=== PATIENT | male | born 2000 | race Caucasian/White ===

== ENCOUNTER 2022-08-12 16:34 | Emergency (ER) | payer OTHER, SELFPAY ==
[2022-08-12 16:38] VITALS: BP 132/81; PULSE 101; RESP 18; TEMP 37.3; O2SAT 97; BMI 23.6
[2022-08-12 16:54] LABS: Appearance Urine Clear; Color Urine Yellow; Glucose Urine UA Negative (Negative); Leukocyte Esterase Urine Negative (Negative); Nitrite Urine Negative (Negative); PH 7.5 (5.0-9.0); Urine Blood Negative (Negative); Urine Ketones Negative (Negative); Urine Protein Negative (Neg-Trace)
[2022-08-12 17:37] VITALS: TEMP 37.9
--- NOTE | 2022-08-12 17:38 | ED.MALEGU ---
HPI - Male Genitourinary General Chief complaint: Urogenital-Male Stated complaint: frequent cold chills Time Seen by Provider: 08/12/22 16:57 Source: patient Mode of arrival: ambulatory Limitations: no limitations History of Present Illness HPI Narrative: 21 yold male presents to the ED for unprotected sex exposure and dysuria. Patient states his sexual partner informed him that she had gonorrhea. patient states two days ago he was evaluated by Providers and was treated emperically for gonorhea and chlamydia and still waiting for the results of gonorrhea and chlamydia. Patient was given ceftraixone and is presently taking doxyclyine for the past 2 days. patient states now seeing non-painful lesion on shaft of penis. Patient also states sore throat. Related Data Allergies Allergy/AdvReac Type Severity Reaction Status Date / Time No Known Allergies Allergy Verified 08/12/22 16:38 Review of Systems Review of Systems: sore throat, dysuria, unprotectes sex Yes all other systems are reviewed and are negative PMFSH Social History Social History Advance Directives: No Advance Directives Information Provided: Yes Physical Exam Vital Signs: Vital Signs: Last Vital Signs Temp 99.2 F 08/12/22 19:16 Pulse 100 08/12/22 19:16 Resp 18 08/12/22 19:16 BP 123/71 08/12/22 19:16 Pulse Ox 95 08/12/22 19:16 O2 Del Method 08/12/22 19:16 BMI result Body Mass Index 23.6 Const: General: cooperative, healthy appearing, comfortable, no acute distress, well developed, alert, awake and Physically active Orientation/consciousness: oriented to time and patient oriented x3 HEENT: Head: Yes normal to inspection, Yes No palpable skull fracture present, Yes normocephalic, Yes atraumatic and No abrasion Throat: Yes posterior oropharynx normal, Yes tonsils normal and Yes uvula midline Eyes: General: appearance normal, both eyes and all related structures Neck: Neck: Yes normal visual inspection, Yes full ROM, Yes no lymphadenopathy, Yes no meningeal signs, Yes trachea midline, Yes supple, No anterior neck swelling and No tender Chest: Chest palpation & inspection: normal inspection of the chest and normal palpation of entire chest wall Resp: Effort & Inspection: normal respiratory effort and able to speak in complete sentences Auscultation: clear to auscultation bilaterally Cardio: Jugular venous distension: no JVD Heart sounds: S1 normal heart sound present and S2 normal heart sound present GI: Inspection: Yes normal to inspection and No abdominal wall ecchymosis Palpation (GI): Soft to palpation, not firm, nontender, no guarding and not rigid : Other: inguinals are normal General: Yes CVA tenderness and Yes no CVA tenderness Penis: uncircumcised Meatus: meatus normal Scrotum: scrotum normal Testes: Testes normal Male genitals images: 1. Non ulcerated nonpainful erythamatous lesion with black spot. Back/Spine/Pelvis: Back: no CVA tenderness and CVA tenderness Skin: General skin exam: no rashes or lesions noted and elasticity normal Neuro: General: oriented to time, patient oriented x3, gait normal, tone normal, no meningeal signs and CN's II-XI intact bilaterally Cranial nerves: Yes CN's II-XII intact bilaterally Extrem: General: Yes normal to inspection and Yes full ROM Psych: Appearance: grossly normal, well kempt and not disheveled Course Course Course Narrative: RPR, chlamydia gonorrhea of the throat ordered, SARs, strep, UA, CTNG urine ordered. HSV ordered. Reevaluation(s) Reevaluation #1: Penicillin G ordered. Patient already on doxycycline and treated with IM ceftriaxone 2 days ago. Patient well appearing to be discharged. Time: 19:53 Medications Administered Discontinued Medications Generic Name Dose Route Start Last Admin Trade Name Freq PRN Reason Stop Dose Admin Penicillin G Benzathine 2,400,000 unit 08/12/22 17:38 08/12/22 18:26 Penicillin G Benzathine 2,400,000 Unit/4 Ml Syringe IM 08/12/22 17:39 2,400,000 unit ONCE ONE Administration MDM - Male Genitourinary MDM Narrative Medical decision making narrative: Unprotected sex expose Lab Data Labs: Lab Results 08/12/22 08/12/22 08/12/22 Range/Units 16:49 18:22 18:57 Urine Color Yellow Urine Appearance Clear Urine pH 7.5 (5.0-9.0) Ur Specific [place] 1.020 (1.005-1.025) Urine Protein Negative (Neg-Trace) mg/dL Urine Glucose (UA) Negative (Negative) mg/dL Urine Ketones Negative (Negative) mg/dL Urine Blood Negative (Negative) Urine Nitrite Negative (Negative) Ur Leukocyte Esterase Negative (Negative) Influenza Type A (PCR) NEGATIVE (Negative) Influenza Type B (PCR) NEGATIVE (Negative) RSV RNA Qual (PCR) NEGATIVE (Negative) SARS-CoV-2 RNA (RT-PCR) NEGATIVE (Negative) S. pyogenes GrpA MARNI Negative (Negative) Discharge Plan Discharge Clinical Impression: STD exposure Patient Disposition: Home, Self-Care Instructions: Safe Sex Practices (ED), Postexposure Prophylaxis (ED) Additional Instructions: You will be called with results if positive. Recommend finishing your doxycycline prescription. No sexual activity for the next 7 days. Recommend follow-up with [facility] for HIV testing. Return to ED for any testicular pain, penile discharge, worsening penile lesions, nausea, vomiting, directable fever, chills, abdominal pain, flank pain, drooling, change in voice, chest pain, neck swelling, or any other concerning symptoms. Please follow-up with primary care provider. Stand Alone Forms: Work/School Release Interventions: ED Discharge Assessment Last Done: 08/12/22 20:19 Discharge Date/Time: 08/12/22 20:19 Print Language: [place]ian
[2022-08-12] MEDS: Penicillin G Benzathine 2,400,000 UNIT/4 ML SYRINGE 2400000 UNIT IM (18:26)
[2022-08-12 19:13] LABS: Influenza A PCR NEGATIVE (Negative); Influenza B PCR NEGATIVE (Negative); Resp Syncy Virus RNA Qual PCR NEGATIVE (Negative); SARS COV2 PCR INHOUSE NEGATIVE (Negative)
[2022-08-12 19:16] VITALS: BP 123/71; PULSE 100; RESP 18; TEMP 37.3; O2SAT 95
--- NOTE | 2022-08-12 19:17 | PC.NURSE ---
patient a&ox3, vss, pt throat swab redone, awaiting results, will continue to monitor
[2022-08-12 19:46] LABS: Strep A Nucleic Acid Negative (Negative)
[2022-08-13 05:21] LABS: Syphilis Screen Nonreactive (Nonreactive)
[2022-08-13 06:11] LABS: CT PCR NOT DETECTED (Not Detect.); NG PCR NOT DETECTED (Not Detect.)
[2022-08-18 16:26] LABS: C. Trachomatis RNA TMA, Throat NOT DETECTED; N. gonorrhoeae RNA TMA, Throat NOT DETECTED
== END 2022-08-12 20:19 | disposition home or self-care (01) ==
PROVIDERS: Physician Assistant; Emergency Provider Internal Medicine
DX: R30.0 Dysuria (principal); Z20.2 Contact with and (suspected) exposure to infections with a predominantly sexual mode of transmission; Z20.822 Contact with and (suspected) exposure to COVID-19; Z79.899 Other long term (current) drug therapy
CPT/HCPCS: 0241U; 36415; 81003; 86780; 87255; 87491; 87591; 87651; 99284; J0561